=== PATIENT | male | born 1990 | race Two or more races ===

== ENCOUNTER 2023-02-25 19:13 | Emergency (ER) | payer SELFPAY ==
[~2023-02-25] VITALS: Ht 180.3 cm; Wt 100.0 kg
[2023-02-25] MEDS ORDERED: TETRACAINE HCL 0.5% OPTH(EYE) SOLN 4ML LEFTEYE ONE (22:00)
[2023-02-25] MEDS ORDERED: FLUORESCEIN SOD OPTH TEST STRIP LEFTEYE ONE (22:00)
[2023-02-25] MEDS ORDERED: ERY05OO OP (22:02)
[2023-02-25 22:58] VITALS: BP 134/70
== END 2023-02-25 22:58 | disposition home or self-care (01) ==
LOC: ER 19:13
DX: T15.82XA Foreign body in other and multiple parts of external eye, left eye, initial encounter (principal); X58.XXXA Exposure to other specified factors, initial encounter; Y93.89 Activity, other specified; Y92.89 Other specified places as the place of occurrence of the external cause; Y99.8 Other external cause status